=== PATIENT | female | born 1985 | race Caucasian/White ===

== ENCOUNTER 2016-09-19 16:05 | Emergency (ER) | payer OTHER ==
[2016-09-19 16:12] VITALS: BP 133/74
--- NOTE | 2016-09-19 16:52 | UC ---
Ear Complaint HPI - HPI Summary HPI Summary: sore throat for 2 days, ears full and congested no cough - History of Current Complaint Chief Complaint: UCGeneralIllness Stated Complaint: SORE THROAT, AND EAR ACHE Time Seen by Provider: 09/19/16 16:45 Hx Obtained From: Patient Hx Last Menstrual Period: 08/25/16 ?: No Onset/Duration: Sudden Onset, Lasting Days - 2, Still Present Severity Initially: Moderate Severity Currently: Moderate Pain Intensity: 7 Pain Scale Used: 0-10 Numeric Aggravating Factors: Nothing Alleviating Factors: Nothing - Allergies/Home Medications Allergies/Adverse Reactions: Allergies Allergy/AdvReac Type Severity Reaction Status Date / Time Diphenhydramine Allergy Severe rash, Verified 09/19/16 16:11 [From Benadryl] hives, swelling Home Medications: Home Medications Ibuprofen TAB* [Advil TAB*] 200 mg PO TID PRN 09/19/16 [History Confirmed ] PMH/Surg Hx/FS Hx/Imm Hx Previously Healthy: No Endocrine History Of: Denies: Diabetes, Thyroid Disease Cardiovascular History Of: Denies: Cardiac Disorders, Hypertension Respiratory History Of: Denies: COPD, Asthma GI/ History Of: Reports: Gall Bladder Disease - s/p Cholecystectomy Denies: Gastroesophageal Reflux, Ulcer - Surgical History Surgical History: Yes Surgery Procedure, Year, and Place: x 4. cholecystectomy - Family History Known Family History: Positive: Unknown, Hypertension, Diabetes, Other - cervical CA Family History: unk - Social History Occupation: Unemployed Lives: With Family - with RSV Alcohol Use: None Substance Use Type: None Smoking Status (MU): Never Smoked Tobacco Have You Smoked in the Last Year: No Review of Systems Constitutional: Negative Skin: Negative Eyes: Negative ENT: Sore Throat, Ear Ache Respiratory: Negative Cardiovascular: Negative Gastrointestinal: Negative Genitourinary: Negative Motor: Negative Neurovascular: Negative Musculoskeletal: Arthralgia, Myalgia Neurological: Negative Psychological: Negative All Other Systems Reviewed And Are Negative: Yes Physical Exam Triage Information Reviewed: Yes Appearance: Well-Nourished, Ill-Appearing, Pain Distress Vital Signs: Initial Vital Signs Temp 99.0 F 09/19/16 16:09 Pulse 85 09/19/16 16:09 Resp 16 09/19/16 16:09 BP 133/74 09/19/16 16:09 Pulse Ox 100 05/16/17 16:09 Vital Signs Reviewed: Yes Eye Exam: Normal Eyes: Positive: Conjunctiva Clear ENT Exam: Normal ENT: Positive: Normal ENT inspection, Hearing grossly normal, Pharyngeal erythema, TMs normal, Tonsillar swelling. Negative: Nasal congestion, Nasal drainage, Tonsillar exudate, Trismus, Muffled/hoarse voice Dental Exam: Normal Neck exam: Normal Neck: Positive: Supple, Nontender, No Lymphadenopathy Respiratory Exam: Normal Respiratory: Positive: Chest non-tender, Lungs clear, Normal breath sounds, No respiratory distress, No accessory muscle use Cardiovascular Exam: Normal Cardiovascular: Positive: RRR, No Murmur, Pulses Normal, Brisk Capillary Refill Musculoskeletal Exam: Normal Musculoskeletal: Positive: Strength Intact, ROM Intact, No Edema Neurological Exam: Normal Neurological: Positive: Alert, Muscle Tone Normal Psychological Exam: Normal Skin Exam: Normal Diagnostics - Laboratory Diagnostic Studies Completed/Ordered: Influenza A/B (-) RST (+) Ear Complaint Course/Dx - Course Course Of Treatment: Amoxicillin, ibuprofen, increase fluids, follow with pcp prn - Differential Dx/Diagnosis Differential Diagnosis/HQI/PQRI: Otitis Externa, Otitis Media, Pharyngitis, URI Provider Diagnoses: Strep Pharyngitis Discharge - Discharge Plan Condition: Stable Disposition: HOME Prescriptions: Amoxicillin (*) [Amoxicillin 875 MG (*)] 875 mg PO BID #20 tab Patient Education Materials: Strep Throat (ED) Referrals: [facility] [place] [facility]IAN REFERRAL [Outside] - 2 Weeks No Primary Care Phys,NOPCP [Primary Care Provider] -
[2016-09-19] MEDS ORDERED: Ibuprofen TAB* 600 MG PO ONE (16:57)
== END 2016-09-19 17:26 | disposition home or self-care (01) ==
LOC: UCEAST 16:05
DX: J02.0 Streptococcal pharyngitis (principal)
CPT/HCPCS: 87502; 87651; 99212; A9270-GY; G0463

== ENCOUNTER 2016-11-01 17:11 | Emergency (ER) | payer MEDICAID, OTHER ==
[2016-11-01 17:20] VITALS: BP 110/73
[2016-11-01] MEDS ORDERED: Diazepam SYRINGE* 5 MG/ML SYRINGE IV ONE (17:58)
[2016-11-01] MEDS ORDERED: Ketorolac INJ* 30 MG/ML 1 ML VIAL IV PUSH ONE (17:58)
--- NOTE | 2016-11-01 18:12 | ED ---
Back Pain - HPI Summary HPI Summary: Pt here w/ acute LBP x 2 days, worse today. Was leaning forward over a railing yesterday while holding a box she was handing off to her father below her - felt a pop in her back and had acute LBP. Was able to ambulate but went to [place] ED as pain was intense. Took ibuprofen prior to arrival w/o relief. Was given a muscle relaxer and norco which only took the edge off. Did not sleep comfortably at all last night - reports best position was on Rt hip w/ pillow between her knees but even that became uncomfortable after a while. When she woke today, she went about normal activities but cautiously - took kids to park and upon return from park, sat on couch which caused a great deal of pain. Pain was so much in fact that she lost bladder control. Reports she tried to hold this but could not. Someone helped her up from couch. Shortly thereafter, she bent over to hand her 4 y.o. a bottle and went down to the ground and was not able to move her LE's - reports this as weakness in combination w/ excruciating pain. She called her PCP who told her to go to ED. Her friend then called her an ambulance and she was brought here. She reports she could not stand nor move LE's, could only use UE's during transition onto stretcher. Reports pain is constant at a 7/10 in her most comfortable position which is lying flat on her back. It is worse w/ transitioning and sitting up to "over a 10/10...feels like when I had a and I could feel the cutting into my stomach". Pain radiates from lower back into both buttocks however pain continues further on down LLE, into thigh and behind calf, into toes. Has decreased sensation in her Lt toes. H/o "sciatica" during . No other back injuries or issues to report. Has not taken any medication yet today as she had not picked up her norco rx last night after ED visit. States she doesn't like to take meds unless she absolutely has to - agrees to trying something now. No change in bowel function and no UTI sx leading up to incident. - History of Current Complaint Chief Complaint: EDBackInjuryPain Stated Complaint: BACK PAIN Time Seen by Provider: 11/01/16 17:39 Hx Obtained From: Patient Hx Last Menstrual Period: 08/25/16 Pain Intensity: 9 - Allergies/Home Medications Allergies/Adverse Reactions: Allergies Allergy/AdvReac Type Severity Reaction Status Date / Time Diphenhydramine Allergy Severe rash, Verified 09/19/16 16:11 [From Benadryl] hives, swelling PMH/Surg Hx/FS Hx/Imm Hx Previously Healthy: Yes Endocrine/Hematology History: Denies: Hx Anticoagulant Therapy, Hx Blood Disorders, Hx Diabetes, Hx Thyroid Disease Cardiovascular History: Denies: Hx Hypertension Respiratory History: Denies: Hx Asthma, Hx Chronic Obstructive Pulmonary Disease (COPD) GI History: Reports: Hx Gall Bladder Disease - s/p Cholecystectomy Denies: Hx Ulcer Musculoskeletal History: Reports: Other Musculoskeletal History - h/o sciatica during only Psychiatric History: Denies: Hx Substance Abuse - Surgical History Surgery Procedure, Year, and Place: x 4. cholecystectomy Infectious Disease History: No Infectious Disease History: Denies: Hx Clostridium Difficile, Hx Hepatitis, Hx Human Immunodeficiency Virus (HIV), Hx of Known/Suspected MRSA, Hx Shingles, Hx Tuberculosis, Hx Known/ Suspected VRE, Hx Known/Suspected VRSA, History Other Infectious Disease, Traveled Outside the [place] in Last 30 Days - Family History Known Family History: Positive: Hypertension, Diabetes, Other - cervical CA Family History: unk - Social History Lives: With Family - and children Alcohol Use: Occasionally Hx Substance Use: No Substance Use Type: Reports: None Hx Tobacco Use: No Smoking Status (MU): Never Smoked Tobacco Have You Smoked in the Last Year: No Review of Systems Constitutional: Negative Negative: Fever, Chills Cardiovascular: Negative Negative: Chest Pain Respiratory: Negative Negative: Shortness Of Breath Gastrointestinal: Negative Negative: Abdominal Pain, Vomiting, Diarrhea, Nausea Positive: see HPI Musculoskeletal: Other - see HPI Skin: Negative Neurological: Other - see HPI Positive: Weakness, Paresthesia Psychological: Normal All Other Systems Reviewed And Are Negative: Yes Physical Exam Triage Information Reviewed: Yes Vital Signs On Initial Exam: Initial Vitals Temp Pulse Resp BP Pulse Ox 98.4 F 65 20 110/73 98 11/01/16 17:16 11/01/16 17:16 11/01/16 17:16 11/01/16 17:16 11/01/16 17:16 Vital Signs Reviewed: Yes Appearance: Positive: Well-Appearing - lying supine on stretcher - appears gaurded w/ movements, Pain Distress, Obese Skin: Positive: Warm, Dry Head/Face: Positive: Normal Head/Face Inspection Eyes: Positive: Normal, EOMI, Conjunctiva Clear ENT: Positive: Hearing grossly normal Respiratory/Lung Sounds: Positive: Breath Sounds Present Cardiovascular: Positive: Normal, Pulses are Symmetrical in both Upper and Lower Extremities Musculoskeletal: Positive: Strength/ROM Intact - dorsiflexion/plantar flexion are 5/5; can flex/extend knee's B/L however is painful; (+) Lt SLR; TTP over lower lumbar spinous pp, sacral region/SI joint on Lt Neurological: Positive: Alert, Oriented to Person Place, Time, CN Intact II-III , Reflexes Intact. Negative: Sensory/Motor Intact - decreased sensation over Lt lateral thigh, lateral calf and pinky toe Psychiatric: Positive: Anxious - concerned but calm cooperative Diagnostics - Vital Signs Vital Signs Temp Pulse Resp BP Pulse Ox 11/01/16 17:20 98.4 F 67 20 110/73 98 11/01/16 17:16 98.4 F 65 20 110/73 98 - Laboratory Lab Statement: Any lab studies that have been ordered have been reviewed, and results considered in the medical decision making process. Re-Evaluation - Re-Evaluation First Eval Change: Improved - somewhat better s/p meds - pain better controlled and moving easier Back Pain Course/Dx - Course Course Of Treatment: Pt here w/ worsening LBP and LE sx w/ sensation deficit and perceived weakness s/p injury to lower back a couple of days ago. She is scheduled to see PT but pain worse today and deficits raised concern for ED evaluation. D/t unclear report of urinary sx (incontinence d/t overwhelming pain vs. involuntary loss of control), MRI was ordered to r/o cauda equina syndrome. Pt's MRI reveals the followin) L4-5 annular fissure and minimal broad posterior disc protrusion w/ minimal resulting impression on ventral margin of the thecal sac. 2) L5-S1 in addition to mild annualr disc bulge there is central to Lt foraminal mild protrusion which contrasts the anterior margin of traversin Lt S1 nerve root in lateral recess w/o significant compression. Pt had pain relief and easier movement w/ toradol, diazepam and dexamethasone. Advised close f/u w/ PCP and PT - may need neurosurg consult. Reviewed danger s/sx of when to return to ED. Pt and family voice understanding. - Diagnoses Provider Diagnoses: Bulging discs Discharge - Discharge Plan Condition: Stable Disposition: HOME Prescriptions: Diazepam TAB(*) [Valium TAB(*)] 5 mg PO TID PRN #9 tab MDD 3 PRN Reason: Pain Ketorolac TAB * [Toradol TAB *] 10 mg PO Q6H #20 tab Patient Education Materials: Lumbar Disc Herniation (ED), Lumbar Radiculopathy (ED) Forms: *Work Release Referrals: Myranda Mccormick DO [Primary Care Provider] - 2 Days Additional Instructions: You appear to have a 2 disc herniations causing you pain today. It is encouraged that you rest and advance through movements only advised by Physical Therapy - keep your appointment tomorrow and bring your MRI disc for review. You received a dose of steroid here tonight - this should last for 3 days. You may continue to take toradol, a pain reliever/anti-inflammatory medication, sent to pharmacy today. Take with food and complete course over next 5 days. You may alternate with acetaminophen (tylenol) 650mg every 6 hours. You may take diazepam, muscle relaxer, for breakthrough pain only. Try not to take this if your pain is controlled/tolerable. Follow-up with PCP this week. Call tomorrow for appointment Sunday. *If prior to follow-up, you develop weakness, numbness or loss of bowel/bladder control, return to ED
--- NOTE | 2016-11-01 20:50 | RAD ---
Indication: Low back pain. [place] pop. Radiating pain. Bladder incontinence. LEFT lower extremity neurologic symptoms. Assess for cauda equina syndrome. Comparison: June 06, 2015 CT. Technique: [employer] 1.5 Rita [id number] with GEM suite. Noncontrast MRI lumbar sacral spine. Report: Unremarkable conus medullaris and cauda equina. Bone marrow signal is normal throughout. Negative for fracture or spondylolysis at any level. Normal vertebral alignment accounting for exam positioning without spondylolisthesis or subluxation at any level. Multilevel small Schmorl node endplate herniations. T12-L1: Unremarkable disc level for age without acquired spinal stenosis. L1-L2: Unremarkable disc level for age without acquired spinal stenosis. L2-L3: Unremarkable disc level for age without acquired spinal stenosis. L3-L4: Unremarkable disc level for age without acquired spinal stenosis. L4-L5: Disc desiccation. Increased signal in the midline posterior annulus consistent with annular fissure. Minimal broad posterior disc protrusion with only minimal resulting impression on the ventral margin of the thecal sac. No significant central canal or foraminal stenosis. No gross change compared with the prior CT. L5-S1: Mild annular disc bulge. Small posterior central to LEFT foraminal disc protrusion which contacts the ventral margin of the traversing LEFT S1 nerve root in the lateral recess. Negative for significant foraminal stenosis. No gross change compared with the prior CT. IMPRESSION: 1. At L4-L5 there is an annular fissure and a minimal broad posterior disc protrusion with minimal resulting impression on the ventral margin of the thecal sac. 2. At L5-S1 in addition to mild annular disc bulge there is a posterior central to LEFT foraminal mild protrusion which contacts the anterior margin of the traversing LEFT S1 nerve root in the lateral recess without significant compression.
[2016-11-01] MEDS ORDERED: Dexamethasone IV* 4 MG/ML 5 ML VIAL (20 MG) IVPB ONE (21:18)
[2016-11-01] MEDS ORDERED: Ketorolac TAB * 10 MG TAB PO ONE (21:19)
[2016-11-01] MEDS ORDERED: Diazepam TAB(*) 5 MG PO ONE (21:19)
== END 2016-11-01 22:09 | disposition home or self-care (01) ==
LOC: ED 17:11
DX: M54.9 Dorsalgia, unspecified (principal); R53.1 Weakness; M51.24 Other intervertebral disc displacement, thoracic region
CPT/HCPCS: 72148; 96374; 96375; 99283; A9270-GY; J1885; J3360